=== PATIENT | male | born 1945 | race Caucasian/White ===

== ENCOUNTER 2017-10-07 19:27 | Observation (INO) | payer MEDICARE ==
[~2017-10-07 19:27] MED LIST: Dexamethasone 20 MG/5 ML VIAL ONE; Fentanyl 100 MCG/2 ML VIAL ONE; Lidocaine 1% PF 5 ML VIAL ONE; Ondansetron HCl/PF 4 MG/2 ML Vial ONE; PHENYLEPHRINE-NS 100 MCG/ML 10 ML SYRINGE ONE; PROPOFOL 200 MG/20 ML VIAL ONE
[2017-10-07] MEDS ORDERED: Ondansetron ODT 8 MG TAB ONE (19:40)
[2017-10-07] MEDS ORDERED: Lidocaine 1% (PF) 30 ML VIAL ONE (19:46)
[2017-10-07 19:54] LABS: #Eosinphils 0.1 thou/uL (0.0-0.7); #Lymphocytes 0.3 thou/uL (1.20-3.40); #Monocytes 0.5 thou/uL (0.11-0.59); #Neutrophils 6.2 thou/uL (1.40-6.50); %Basophils 0.3 % (0.0-1.0); %Eosinophils 1.6 % (0.0-10.0); %Lymphocytes 4.7 % (21.0-51.0); %Monocytes 7.5 % (0.0-10.0); %Neutrophils 85.9 % (42.0-75.0); Hemoglobin 11.7 g/dL (14.0-18.0); Mean Corpuscular HGB CONC 34.8 g/dL (32.0-36.0); Mean Corpuscular Hemoglobin 31.6 pg (27.0-31.0); Mean Corpuscular Volume 90.9 fl (80.0-94.0); Mean Platelet Volume 7.1 fL (7.4-10.4); Platelet Count 163 thou/uL (130-400); White Blood Cell (WBC) Count 7.2 thou/uL (4.8-10.8)
[2017-10-07 20:01] LABS: INR-International Normal Ratio 1.1; PTT 29.6 SEC (22.9-36.1); Prothrombin Time 14.1 SEC (12.0-14.7)
[2017-10-07] MEDS ORDERED: Bupivacaine PF 0.5% 30 ML VIAL ONE (20:01)
[2017-10-07] MEDS ORDERED: Betamet Acet/Betamet Na Ph 30 MG/5 ML VIAL ONE (20:01)
[2017-10-07] MEDS ORDERED: Sodium Chloride 0.9% 60 ML ONE (20:01)
[2017-10-07] MEDS ORDERED: Thrombin 5000 UNITS/5 ML VIAL ONE (20:02)
[2017-10-07] MEDS ORDERED: Bacitracin Zinc Ointment 30 gm TUBE ONE (20:02)
[2017-10-07 20:06] LABS: ALT (SGPT) 18 U/L (8-55); AST (SGOT) 31 U/L (5-34); Albumin 4.4 g/dL (3.4-4.8); Alkaline Phosphatase 140 U/L (40-150); Anion Gap 14 mmol/L (10-20); BUN (Urea Nitrogen) 9 mg/dL (8.4-25.7); Bilirubin, Total 0.9 mg/dL (0.2-1.2); Calc. Creatinine Clearance 0 mL/min (70-130); Calcium 9.5 mg/dL (7.8-10.44); Carbon Dioxide 24 mmol/L (23-31); Chloride 104 mmol/L (98-107); Estimated GFR-MDRD Greater than 90; Glucose 129 mg/dL (83-110); Potassium 3.7 mmol/L (3.5-5.1); Protein, Total 6.4 g/dL (5.8-8.1); Sodium 138 mmol/L (136-145)
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
[2017-10-07] MEDS ORDERED: Ondansetron HCl/PF 4 MG/2 ML Vial ONE (22:20)
[2017-10-07] MEDS ORDERED: Ondansetron HCl/PF 4 MG/2 ML Vial IVP PRN ×2 (22:31→23:46)
[2017-10-07] MEDS ORDERED: Fentanyl 100 MCG/2 ML VIAL ONE (22:43)
[2017-10-07] MEDS ORDERED: traMADol HCl 50 MG TAB PO PRN (22:47)
[2017-10-07] MEDS ORDERED: Morphine 4 MG/ML VIAL SLOW IVP PRN ×2 (22:47→23:46)
[2017-10-07] MEDS ORDERED: HYDROcodone/Acetaminophen 10/325 mg Tablet PO PRN ×3 (22:47→23:46)
--- NOTE | 2017-10-07 22:55 | RAD ---
LEFT HAND TWO VIEWS: 10/07/17 HISTORY: Intraoperative films. These show pin placement stabilizing the comminuted proximal phalanx index finger fracture. IMPRESSION: Pinning of comminuted fracture. POS: [facility]
[2017-10-07] MEDS ORDERED: Communication Order-Pharmacy FS PRN (23:00)
[2017-10-07] MEDS ORDERED: TETANUS AND DIPHTHERIA TOX/PF 0.5 ML DISP.SYRIN IM SCH (23:00)
[2017-10-07 23:36] LABS: Hemoglobin 10.6 g/dL (14.0-18.0); Mean Corpuscular HGB CONC 35.9 g/dL (32.0-36.0); Mean Corpuscular Hemoglobin 32.2 pg (27.0-31.0); Mean Corpuscular Volume 89.8 fl (80.0-94.0); RBC Distribution Width 14.4 % (11.5-14.5); Red Blood Cell (RBC) Count 3.28 mill/uL (4.70-6.10); White Blood Cell (WBC) Count 6.4 thou/uL (4.8-10.8)
[2017-10-07 23:40] LABS: #Eosinphils 0.1 thou/uL (0.0-0.7); #Lymphocytes 0.3 thou/uL (1.20-3.40); #Monocytes 0.3 thou/uL (0.11-0.59); #Neutrophils 5.7 thou/uL (1.40-6.50); %Basophils 0.1 % (0.0-1.0); %Eosinophils 1.6 % (0.0-10.0); %Lymphocytes 5.2 % (21.0-51.0); %Neutrophils 88.1 % (42.0-75.0); Mean Platelet Volume 7.2 fL (7.4-10.4); PLT Morphology Comment Appears Adequate; RBC Morphology Normal
[2017-10-07] MEDS ORDERED: Ondansetron ODT 4 MG TAB PO PRN (23:46)
[2017-10-07] MEDS ORDERED: hydrALAZINE 20 MG/ML VIAL SLOW IVP PRN (23:46)
[2017-10-07] MEDS ORDERED: Insulin Regular 300 UNITS/3 ML VIAL SC PRN (23:46)
[2017-10-07] MEDS ORDERED: Dextrose 5% in Water 1,000 ML IV PRN (23:46)
[2017-10-07] MEDS ORDERED: Dextrose 50% Abboject 50 ML SYRINGE SLOW IVP PRN (23:46)
[2017-10-07] MEDS ORDERED: Famotidine 20 MG TAB PO SCH (23:59)
[2017-10-07] MEDS ORDERED: Ketorolac Tromethamine 30 MG/ML VIAL IVP SCH (23:59)
[2017-10-08] MEDS: Sodium Chloride 0.9% 1,000 ML IV SCH ×3 (01:10→16:36)
[2017-10-08] MEDS: Ketorolac Tromethamine 30 MG/ML VIAL IVP SCH ×3 (01:20→11:16)
[2017-10-08] MEDS: Famotidine 20 MG TAB PO SCH ×2 (01:22→08:28)
[2017-10-08] MEDS: Vancomycin HCl 1.5 GM in Sodium Chloride 0.9% 250 ML 300 ML IVPB SCH ×3 (01:39→18:23)
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
[2017-10-08 06:02] LABS: Anion Gap 12 mmol/L (10-20); BUN (Urea Nitrogen) 8 mg/dL (8.4-25.7); Calc. Creatinine Clearance 0 mL/min (70-130); Calcium 8.8 mg/dL (7.8-10.44); Carbon Dioxide 21 mmol/L (23-31); Chloride 109 mmol/L (98-107); Estimated GFR-MDRD Greater than 90; Glucose 169 mg/dL (83-110); Potassium 4.1 mmol/L (3.5-5.1); Sodium 138 mmol/L (136-145)
[2017-10-08 06:23] LABS: #Lymphocytes 0.3 thou/uL (1.20-3.40); #Monocytes 0.1 thou/uL (0.11-0.59); #Neutrophils 6.1 thou/uL (1.40-6.50); %Basophils 0.1 % (0.0-1.0); %Eosinophils 0.3 % (0.0-10.0); %Lymphocytes 4.3 % (21.0-51.0); %Monocytes 1.8 % (0.0-10.0); %Neutrophils 93.4 % (42.0-75.0); Anisocytosis SLIGHT = 6-15 cells (100X) (0-5/hpf); Hemoglobin 10.4 g/dL (14.0-18.0); MDiff Complete? YES; Mean Corpuscular HGB CONC 34.2 g/dL (32.0-36.0); Mean Corpuscular Volume 90.7 fl (80.0-94.0); Mean Platelet Volume 7.1 fL (7.4-10.4); PLT Morphology Comment Appears Decreased; Platelet Count 117 thou/uL (130-400); RBC Distribution Width 14.7 % (11.5-14.5); Red Blood Cell (RBC) Count 3.35 mill/uL (4.70-6.10); White Blood Cell (WBC) Count 6.6 thou/uL (4.8-10.8)
[2017-10-08] MEDS: Aspirin 81 mg Enteric Coated Tablet PO SCH ×2 (08:28→20:51)
[2017-10-08] MEDS: Metoprolol Tartrate 100 MG TAB PO SCH ×2 (08:28→20:52)
[2017-10-08] MEDS: Brimonidine Tartrate 0.2% Ophth Soln 5 ml Bottle R EYE SCH ×2 (08:29→16:36)
[2017-10-08] MEDS: Acyclovir 400 mg Tablet PO SCH ×2 (08:33→20:52)
[2017-10-08] MEDS ORDERED: [UNRECOGNIZED DRUG - OTHER] EA EYE SCH (09:00)
[2017-10-08] MEDS ORDERED: GATIFLOXACIN 0.5% EA EYE SCH (09:00)
[2017-10-08] MEDS ORDERED: Vancomycin HCl 1 GM in Premix Bag 1 BAG IVPB SCH (09:00)
[2017-10-08] MEDS ORDERED: PREDNISOLONE 1% EA EYE SCH (09:00)
[2017-10-08] MEDS ORDERED: Non-Formulary Item 1 EACH (Brimonidine Tartrate [Alphagan P 0.1% Ophth Soln] 1 DROP) R EYE SCH (09:00)
[2017-10-08] MEDS ORDERED: Allopurinol 100 MG TAB PO SCH (09:00)
[2017-10-08] MEDS ORDERED: PREDNISOLONE EA EYE SCH (09:00)
[2017-10-08] MEDS ORDERED: GATIFLOXACIN EA EYE SCH (09:00)
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
[2017-10-08 16:45] VITALS: TEMP 98.2
[2017-10-08 20:17] VITALS: BP 153/72
[2017-10-08] MEDS ORDERED: Simvastatin 20 MG TAB PO SCH (21:00)
[2017-10-08] MEDS ORDERED: Atorvastatin Calcium 10 MG TAB PO SCH (21:00)
== END 2017-10-08 21:20 | disposition home or self-care (01) ==
LOC: ERS 19:27 → SURG B 20:44 → SDC/OP 21:17 → SURG B 22:47
PROVIDERS: ADMIT Specialist; ATTEND Specialist
PROC: 0PSV04Z Reposition Left Finger Phalanx with Internal Fixation Device, Open Approach (ICD-10-PCS; principal; 2017-10-08)
PROC: 0PSV04Z Reposition Left Finger Phalanx with Internal Fixation Device, Open Approach (ICD-10-PCS; 2017-10-08)
PROC: 01Q60ZZ Repair Radial Nerve, Open Approach (ICD-10-PCS; 2017-10-08)
PROC: 01Q40ZZ Repair Ulnar Nerve, Open Approach (ICD-10-PCS; 2017-10-08)
DX: S62.611B Displaced fracture of proximal phalanx of left index finger, initial encounter for open fracture (principal); S64.491A Injury of digital nerve of left index finger, initial encounter; E11.9 Type 2 diabetes mellitus without complications; Z79.02 Long term (current) use of antithrombotics/antiplatelets; Z79.899 Other long term (current) drug therapy; Z88.0 Allergy status to penicillin; Z88.8 Allergy status to other drugs, medicaments and biological substances; X58.XXXA Exposure to other specified factors, initial encounter; W34.00XA Accidental discharge from unspecified firearms or gun, initial encounter
CPT/HCPCS: 11012; 26735; 36430; 64831; 64832; 73120; 73130; 76001; 80048; 80053; 82150; 82962; 85025 ×3; 85610; 85730; 86850; 86900; 86901; 86920; 94640 ×2; 96374 ×2; 96375; 96376; 97139; 99291; G0378; P9016; 36415; 36416; A4216; G0390; J0360; J0702; J1100; J1885; J2001; J2405; J2704; J3010; J3370; J3490; J7050; J7620; S0020

== ENCOUNTER 2017-10-13 13:39 | Observation (INO) | payer MEDICARE ==
[2017-10-13] MEDS ORDERED: PROPOFOL 200 MG/20 ML VIAL ONE (14:13)
[2017-10-13] MEDS ORDERED: PHENYLEPHRINE-NS 100 MCG/ML 10 ML SYRINGE ONE (14:13)
[2017-10-13] MEDS ORDERED: Lidocaine 1% PF 5 ML VIAL ONE (14:13)
[2017-10-13 18:51] LABS: Hemoglobin 10.8 g/dL (14.0-18.0); Mean Corpuscular HGB CONC 35.8 g/dL (32.0-36.0); Mean Corpuscular Hemoglobin 32.1 pg (27.0-31.0); Mean Corpuscular Volume 89.6 fl (80.0-94.0); Mean Platelet Volume 6.7 fL (7.4-10.4); Platelet Count 121 thou/uL (130-400); RBC Distribution Width 15.5 % (11.5-14.5); Red Blood Cell (RBC) Count 3.35 mill/uL (4.70-6.10); White Blood Cell (WBC) Count 3.3 thou/uL (4.8-10.8)
[2017-10-13] MEDS ORDERED: Clindamycin/D5W 600 mg/50 ml Premix Bag ONE (19:04)
[2017-10-13 19:07] LABS: Anisocytosis SLIGHT = 6-15 cells (100X) (0-5/hpf); Lymphocytes 4 % (21-51); MDiff Complete? YES; Monocytes 5 % (0-10); Neutrophil 91 % (42-75); PLT Morphology Comment Appears Decreased
[2017-10-13 19:08] LABS: Anion Gap 11 mmol/L (10-20); BUN (Urea Nitrogen) 13 mg/dL (8.4-25.7); Calc. Creatinine Clearance 98 mL/min (70-130); Calcium 9.5 mg/dL (7.8-10.44); Carbon Dioxide 22 mmol/L (23-31); Chloride 107 mmol/L (98-107); Estimated GFR-MDRD 89; Glucose 101 mg/dL (83-110); Potassium 4.3 mmol/L (3.5-5.1); Sodium 136 mmol/L (136-145)
[2017-10-13] MEDS ORDERED: Bacitracin Zinc Ointment 30 gm TUBE ONE (21:22)
[2017-10-13] MEDS ORDERED: Thrombin 5000 UNITS/5 ML VIAL ONE ×2 (21:22→22:37)
[2017-10-13] MEDS ORDERED: Midazolam HCl 2 mg/2 ml Vial ONE (21:27)
[2017-10-13] MEDS ORDERED: Fentanyl 100 MCG/2 ML VIAL ONE (21:27)
[2017-10-13] MEDS ORDERED: Bupivacaine PF 0.5% 30 ML VIAL ONE (21:44)
[2017-10-14] MEDS ORDERED: Ondansetron HCl/PF 4 MG/2 ML Vial IVP PRN (03:09)
[2017-10-14] MEDS ORDERED: Promethazine HCl 25 MG/ML VIAL SLOW IVP PRN (03:09)
[2017-10-14] MEDS ORDERED: Promethazine HCl 25 MG/ML VIAL IM PRN (03:09)
[2017-10-14] MEDS ORDERED: Ondansetron HCl/PF 4 MG/2 ML Vial IV PRN (03:13)
[2017-10-14] MEDS ORDERED: Morphine 4 MG/ML Carpuject IVP PRN (03:13)
[2017-10-14] MEDS ORDERED: Milk Of Magnesia 30 ML UDCUP PO PRN (03:13)
[2017-10-14] MEDS ORDERED: traMADol HCl 50 MG TAB PO PRN (03:13)
[2017-10-14] MEDS ORDERED: Bisacodyl 10 MG SUPP PR PRN (03:13)
[2017-10-14] MEDS ORDERED: HYDROcodone/Acetaminophen 10/325 mg Tablet PO PRN (03:13)
[2017-10-14] MEDS ORDERED: TETANUS AND DIPHTHERIA TOX/PF 0.5 ML DISP.SYRIN IM SCH (03:15)
[2017-10-14] MEDS ORDERED: Communication Order-Pharmacy FS SCH ×2 (03:15→03:30)
[2017-10-14] MEDS ORDERED: Fentanyl 100 MCG/2 ML VIAL ONE (03:24)
[2017-10-14] MEDS ORDERED: Vancomycin HCl 1.5 GM in Sodium Chloride 0.9% 250 ML 300 ML IVPB SCH ×2 (03:45→15:30)
[2017-10-14 04:17] VITALS: BMI 24.3
[2017-10-14 04:46] LABS: ALT (SGPT) 16 U/L (8-55); AST (SGOT) 28 U/L (5-34); Albumin 3.7 g/dL (3.4-4.8); Alkaline Phosphatase 93 U/L (40-150); Anion Gap 15 mmol/L (10-20); BUN (Urea Nitrogen) 12 mg/dL (8.4-25.7); Bilirubin, Total 0.8 mg/dL (0.2-1.2); Calc. Creatinine Clearance 95 mL/min (70-130); Calcium 8.8 mg/dL (7.8-10.44); Carbon Dioxide 17 mmol/L (23-31); Chloride 107 mmol/L (98-107); Estimated GFR-MDRD 87; Globulin 1.7 g/dL (2.4-3.5); Glucose 109 mg/dL (83-110); Potassium 4.1 mmol/L (3.5-5.1); Protein, Total 5.4 g/dL (5.8-8.1); Sodium 135 mmol/L (136-145)
[2017-10-14] MEDS: Sodium Chloride 0.9% 1,000 ML IV SCH ×2 (04:55→13:39)
[2017-10-14 05:17] LABS: #Lymphocytes 0.5 thou/uL (1.20-3.40); #Monocytes 0.5 thou/uL (0.11-0.59); #Neutrophils 5.9 thou/uL (1.40-6.50); %Eosinophils 0.4 % (0.0-10.0); %Lymphocytes 6.9 % (21.0-51.0); %Neutrophils 85.7 % (42.0-75.0); Hemoglobin 10.3 g/dL (14.0-18.0); Mean Corpuscular Hemoglobin 31.7 pg (27.0-31.0); Mean Corpuscular Volume 90.8 fl (80.0-94.0); Mean Platelet Volume 7.1 fL (7.4-10.4); Platelet Count 118 thou/uL (130-400); RBC Distribution Width 15.4 % (11.5-14.5); Red Blood Cell (RBC) Count 3.25 mill/uL (4.70-6.10); White Blood Cell (WBC) Count 6.9 thou/uL (4.8-10.8)
[2017-10-14 05:24] LABS: PTT 29.5 SEC (22.9-36.1); Prothrombin Time 13.7 SEC (12.0-14.7)
[2017-10-14] MEDS: HYDROcodone/Acetaminophen 5/325 mg Tablet PO PRN ×3 (08:17→20:15)
--- NOTE | 2017-10-14 08:19 | RAD ---
FINGERS OF LEFT HAND: Three fluoroscopic views presented. INDICATION: Fracture index finger with images taken in OR during internal fixation. FINDINGS/IMPRESSION: Dorsal plate and screws transfix the proximal phalanx of the index finger. There are also pins prese nt within the comminuted portion of the proximal aspect of this phalanx transfixing the comminuted fr acture. POS: [facility]
[2017-10-14] MEDS ORDERED: Aspirin 81 mg Enteric Coated Tablet PO SCH ×2 (09:00)
[2017-10-14] MEDS ORDERED: HYDROcodone/Acetaminophen 7.5/325 mg Tablet PO SCH ×2 (14:00)
[2017-10-14] MEDS ORDERED: Sulfameth/Trimethoprim DS 800-160mg TAB PO SCH ×2 (14:00)
[2017-10-14] MEDS ORDERED: Non-Formulary Item 1 EACH (Brimonidine Tartrate [Alphagan P 0.1% Ophth Soln] 1 DROP) R EYE SCH (15:00)
[2017-10-14] MEDS: Brimonidine Tartrate 0.2% Ophth Soln 5 ml Bottle R EYE SCH ×2 (16:01→20:12)
[2017-10-14] MEDS ORDERED: metFORMIN XR 500 MG TAB PO SCH (17:00)
[2017-10-14 20:23] VITALS: BP 171/74; TEMP 98.2
[2017-10-14] MEDS ORDERED: Acyclovir 400 mg Tablet PO SCH (21:00)
[2017-10-14] MEDS ORDERED: GATIFLOXACIN 0.5% EA EYE SCH (21:00)
[2017-10-14] MEDS ORDERED: [UNRECOGNIZED DRUG - OTHER] EA EYE SCH (21:00)
[2017-10-14] MEDS ORDERED: Non-Formulary Item 1 EACH (Metformin Hcl [Metformin Hcl Er] 500 MG) PO SCH (21:00)
[2017-10-14] MEDS ORDERED: Simvastatin 20 MG TAB PO SCH (21:00)
[2017-10-14] MEDS ORDERED: PREDNISOLONE EA EYE SCH (21:00)
[2017-10-14] MEDS ORDERED: GATIFLOXACIN EA EYE SCH (21:00)
[2017-10-14] MEDS ORDERED: Metoprolol Tartrate 100 MG TAB PO SCH (21:00)
[2017-10-14] MEDS ORDERED: PREDNISOLONE 1% EA EYE SCH (21:00)
[2017-10-14] MEDS ORDERED: Atorvastatin Calcium 10 MG TAB PO SCH (21:00)
[2017-10-14] MEDS ORDERED: Non-Formulary Item 1 EACH (Omeprazole Magnesium [Prilosec] 20 MG) PO SCH (21:00)
[2017-10-15] MEDS ORDERED: [UNRECOGNIZED DRUG - OTHER] PO SCH (09:00)
[2017-10-15] MEDS ORDERED: Clopidogrel Bisulfate 75 MG TAB PO SCH (09:00)
[2017-10-15] MEDS ORDERED: Aspirin 81 mg Enteric Coated Tablet PO SCH (09:00)
[2017-10-15] MEDS ORDERED: Loratadine 10 MG TAB PO SCH (09:00)
[2017-10-15] MEDS ORDERED: MULTIVITAMIN PO SCH (09:00)
[2017-10-15] MEDS ORDERED: Cetirizine HCl 10 MG TAB PO SCH (09:00)
[2017-10-15] MEDS ORDERED: Allopurinol 100 MG TAB PO SCH (09:00)
[2017-10-15] MEDS ORDERED: Cyanocobalamin (Vitamin B-12) 1,000 MCG TAB PO SCH (09:00)
[2017-10-15] MEDS ORDERED: Multivitamin W/ Minerals 1 TAB PO SCH (09:00)
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
== END 2017-10-14 21:30 | disposition home or self-care (01) ==
LOC: SDC 13:39 → SURG A 10-14 03:13
PROVIDERS: ADMIT Orthopaedic Surgery Hand Surgery; ATTEND Orthopaedic Surgery Hand Surgery
PROC: 0PSV04Z Reposition Left Finger Phalanx with Internal Fixation Device, Open Approach (ICD-10-PCS; principal; 2017-10-13)
DX: S62.611B Displaced fracture of proximal phalanx of left index finger, initial encounter for open fracture (principal); E11.9 Type 2 diabetes mellitus without complications; I10 Essential (primary) hypertension; Z88.0 Allergy status to penicillin; Z88.8 Allergy status to other drugs, medicaments and biological substances; Z79.899 Other long term (current) drug therapy; Z79.82 Long term (current) use of aspirin; Z79.84 Long term (current) use of oral hypoglycemic drugs
CPT/HCPCS: 12042; 20902; 26735; 73140; 76001; 80048; 80053; 85025 ×2; 85610; 85730; 96360; 96361; C1713; G0378; 36415; J2001; J2250; J2704; J3010; J3370; J3490; J7050; S0020